=== PATIENT | female | born 1975 | race African-American/Black ===

== ENCOUNTER 2019-01-03 13:57 | Emergency (ER) | payer OTHER ==
[~2019-01-03] VITALS: Ht 149.9 cm; Wt 61.2 kg
--- OUTSIDE RECORDS SUMMARY | 2019-01-03 14:00 | XMS REPORT ---
Author Author [facility] Address Unknown Phone Unavailable Care Team Providers Care Milk Pickup Driver Name Role Phone Unavailable Unavailable Problems This patient has no known problems. Allergies, Adverse Reactions, Alerts This patient has no known allergies or adverse reactions. Medications This patient has no known medications. Encounters Start Date/Time End Date/Time Encounter Type Admission Type Attending Clinicians Care Facility Care Department Encounter ID 2018-10-15 15:36:20 2018-10-15 15:36:20 Emergency [facility] [id number]
--- OUTSIDE RECORDS SUMMARY | 2019-01-03 14:00 | XMS REPORT | Clinical Summary ---
Author Author [facility] Organization [facility] Address Unknown Phone Unavailable Care Team Providers Care Change Management Coordinator Name Role Phone PCP Unavailable Allergies Comments Active Allergy Reactions Severity Noted Date Codeine Itching 07/27/2009 Body Stiffness Naproxen Other 07/27/2009 Medications End Date Status Medication Sig Dispensed Refills Start Date Active TRAMADOL 50 MG TAB take 1 tablet 0 (50 mg) by oral route every 6 hours as needed Active GABAPENTIN 400 MG TAB take 1 tablet 0 (400 mg) by oral route 3 times per day Active SUMATRIPTAN 25 MG take 1 tablet 30 0 TABIndications: Migraine (25 mg) by 0 oral route once with fluids as early as possible after the onset of a migraine attack;may repeat after 2 hours if headache returns, not to exceed 200mg in 24hrs Active PREDNISONE 5 MG 6 tablets by 21 0 TABIndications: Migraine oral route 0 once daily on day one, 5 tablets on day two, 4 tablets on day three, 3 tablets on day four, 2 tablets on day five, and 1 tablet on day six then discontinue Active gabapentin (NEURONTIN) Take 1 Tab by 90 Tab 3 600 mg tabletIndications: mouth 3 times 0 Muscle weakness daily. Active acetaminophen (TYLENOL) Take 2 90 tablet 0 325 mg tabletIndications: tablets by 8 Pain, dental mouth every 6 hours as needed for Pain. Active ibuprofen (MOTRIN) 600 mg Take 1 tablet 30 tablet 0 tabletIndications: Pain, by mouth 8 dental every 8 hours as needed for Pain. Active Problems Problem Noted Date Sjogren's disease 05/18/2010 Scleroderma 05/18/2010 Cervical stenosis of spine 05/18/2010 Systemic lupus erythematosus 05/18/2010 CTS (carpal tunnel syndrome) 12/10/2009 Pain, dental Encounters Care Team Description Date Type Specialty Brett Munoz MD Pain, dental (Primary Dx) 10/15/2018 Emergency Emergency Medicine after 01/02/2018 Family History Medical History Relation Name Comments Arthritis Mother lupus Heart Mother fatal [place] 36 yo Relation Name Status Comments Brother Alive Brother Alive Brother Alive Father Alive Mother Mother Sister Alive Social History Date Tobacco Use Types Packs/Day Years Used Never Smoker Alcohol Use Drinks/Week oz/Week Comments No 0 Glasses of 0.0 OCCASSIONALLY wine Sex Assigned at Date Recorded Not on file Industry Job Start Date Occupation Not on file Not on file Not on file Travel End Travel History Travel Start No recent travel history available. Last Filed Vital Signs Time Taken Vital Sign Reading 10/15/2018 2:37 PM [facility] Blood Pressure 128/76 10/15/2018 2:37 PM [facility] Pulse 82 10/15/2018 2:37 PM [facility] Temperature 36.9 C (98.4 F) 10/15/2018 2:37 PM [facility] Respiratory Rate 16 10/15/2018 2:37 PM [facility] Oxygen Saturation 97% - Inhaled Oxygen - Concentration - Weight - - Height - - Body Mass Index - Plan of Treatment Health Maintenance Due Date Last Done Comments Cervical Cancer Scrn (3 1994 Yrs) Breast Cancer Scrn 2013 (Yearly) IMM Influenza Seasonal 07/30/2018Jul to December (>/=19 yrs) Results Not on fileafter 01/02/2018 Insurance Type Payer Benefit Subscriber ID Effective Phone Address Plan / Dates Group [facility] xxxxxxxxx 2018- [phone] COMMUNITY Present [id number] [place] [address] Eliz Marks Personal/F Self 1975 [address] (Home) [place] [address]
--- OUTSIDE RECORDS SUMMARY | 2019-01-03 14:00 | XMS REPORT | Clinical Summary ---
Author Author [facility] Address Unknown Phone Unavailable Care Team Providers Care Autism Specialist Name Role Phone Asked, No Pcp PCP Unavailable Allergies Comments Active Allergy Reactions Severity Noted Date Causing numbness all over Ketorolac Other (See 07/27/2018 Comments) Medications End Date Status Medication Sig Dispensed Refills Start Date Active DULoxetine (CYMBALTA) 60 Take 90 mg by 0 MG capsule mouth daily. Active ranitidine (ZANTAC) 150 Take 300 mg 0 MG tablet by mouth daily. Active hydroxychloroquine Take 200 mg 0 (PLAQUENIL) 200 mg tablet by mouth daily. Active traZODone (DESYREL) 150 Take 150 mg 0 MG tablet by mouth nightly as needed for sleep. 08/26/2018 hydrOXYzine (ATARAX) 25 Take 1 tablet 30 tablet 0 MG tablet (25 mg total) 8 by mouth every 6 (six) hours as needed for itching for up to 30 days. 08/01/2018 methylPREDNISolone follow 21 tablet 0 (MEDROL DOSEPAK) 4 mg package 8 tablet directions Active Problems Not on file Encounters Care Team Description Date Type Specialty Merritt Gomez MD Urticaria, chronic of unknown cause (Primary Dx) 07/27/2018 Emergency Emergency Medicine - 07/28/2018 after 01/02/2018 Social History Date Tobacco Use Types Packs/Day Years Used Never Smoker Smokeless Tobacco: Never Used Alcohol Use Drinks/Week oz/Week Comments No Sex Assigned at Date Recorded Not on file Industry Job Start Date Occupation Not on file Not on file Not on file Travel End Travel History Travel Start No recent travel history available. Last Filed Vital Signs Time Taken Vital Sign Reading - Blood Pressure - - Pulse - - Temperature - - Respiratory Rate - - Oxygen Saturation - - Inhaled Oxygen - Concentration 07/27/2018 11:33 PM CDT Weight 59 kg (130 lb) 07/27/2018 11:33 PM CDT Height 149.9 cm (4' 11") 07/27/2018 11:33 PM CDT Body Mass Index 26.26 Plan of Treatment Not on file Results Not on fileafter 01/02/2018 Insurance Payer Benefit Subscriber ID Type Phone Address Plan / Group [employer] xxxxxxxxx HMO [facility] Advance Directives Patient has advance care planning documents on file. For more information, yvette schwarz contact: Nitish Martinez [address] [place] [address]
[2019-01-03] MEDS ORDERED: TETRACAINE HCL 0.5% OPTH SOLN 4 ML BTL ONE (15:43)
[2019-01-03] MEDS ORDERED: FLUORESCEIN SOD(OPTH) 1 MG STRP ONE (15:43)
[2019-01-03 15:47] VITALS: BP 142/87
== END 2019-01-03 16:03 | disposition home or self-care (01) ==
LOC: ER 13:57
DX: H10.89 Other conjunctivitis (principal); M32.9 Systemic lupus erythematosus, unspecified; M79.7 Fibromyalgia; M35.00 Sjogren syndrome, unspecified
CPT/HCPCS: 99283